=== PATIENT | male | born 1995 | race Caucasian/White ===

== ENCOUNTER 2023-11-30 18:27 | Emergency (ER) | payer SELFPAY ==
[2023-11-30 18:27] VITALS: BMI 18.1
[2023-11-30 18:29] VITALS: BP 108/70
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
== END 2023-11-30 21:11 | disposition home or self-care (01) ==
LOC: EMR 18:27
PROVIDERS: EMERGENCY PHYSICIAN Emergency Medicine
DX: R10.9 Unspecified abdominal pain (principal); R07.89 Other chest pain; Y04.2XXA Assault by strike against or bumped into by another person, initial encounter; Z59.00 Homelessness unspecified
CPT/HCPCS: 99283; 71101